=== PATIENT | male | born 1975 | race Caucasian/White ===

== ENCOUNTER 2017-04-30 10:14 | Emergency (ER) | payer MEDICAID, OTHER ==
[~2017-04-30] VITALS: Ht 180.3 cm; Wt 87.0 kg
[2017-04-30] MEDS ORDERED: VISCOUS LIDOCAINE 2% 15 ML UDC PO STA (11:15)
[2017-04-30] MEDS ORDERED: MAGNESIUM/ALUMINUM HYDROXIDE/SIMETHICONE 30ML UDC PO ONE (11:15)
[2017-04-30] MEDS ORDERED: FAMOTIDINE 20MG TABLET PO ONE (11:15)
[2017-04-30 13:22] VITALS: BP 117/64
== END 2017-04-30 13:24 | disposition home or self-care (01) ==
LOC: ER 11:41
DX: R10.13 Epigastric pain (principal); I10 Essential (primary) hypertension; M32.9 Systemic lupus erythematosus, unspecified
CPT/HCPCS: 99284